=== PATIENT | female | born 1955 | race Two or more races ===

== ENCOUNTER 2022-06-24 08:38 | Emergency (ER) | payer OTHER ==
[~2022-06-24] VITALS: Ht 157.5 cm; Wt 67.6 kg
[2022-06-24] MEDS ORDERED: LOSARTAN POTAS100 MG PO (08:53)
[2022-06-24] MEDS ORDERED: HYDROCHLOROTH12.5 MG PO (08:54)
[2022-06-24] MEDS ORDERED: CARVEDILOL6.25 M1 PO (08:54)
[2022-06-24] MEDS ORDERED: LEVOTHYROXINE150 MCG PO (08:54)
[2022-06-24] MEDS ORDERED: ROSUVASTATIN CA10 MG PO (08:54)
[2022-06-24] MEDS ORDERED: ZOFRAN8 MG PO (17:45)
[2022-06-24] MEDS ORDERED: PEPCID AC20 MG PO (17:45)
== END 2022-06-24 17:53 | disposition home or self-care (01) ==
LOC: ER 08:38
DX: K63.5 Polyp of colon (principal); K62.5 Hemorrhage of anus and rectum; Z20.828 Contact with and (suspected) exposure to other viral communicable diseases

== ENCOUNTER 2022-06-30 09:47 | Inpatient (IN) | payer OTHER ==
[~2022-06-30] VITALS: Ht 157.5 cm; Wt 0.5 kg
[~2022-06-30 09:47] MED LIST: CARVEDILOL6.25 M1 PO; HYDROCHLOROTH12.5 MG PO; LEVOTHYROXINE150 MCG PO; LOSARTAN POTAS100 MG PO; PEPCID AC20 MG PO; ROSUVASTATIN CA10 MG PO; ZOFRAN8 MG PO
--- NOTE | 2022-06-30 10:26 | NUR ---
PTE REFIERE QUE TIENE SANGRADO ANAL PTE VIENE VON REFERIDO DEL DR OLMEDO
--- NOTE | 2022-06-30 11:29 | NUR ---
SE RECIBE FEMINA ALERTA Y ORIENTDA POR FRANCO ESFERAS, EN CLEMENTINA CON BARANDAS SEGURAS Y ELEVADAS. SE BALTA MUESTRAS DE LABORATORIO ORDENADAS. SE CANALIZA CON AREA DE VENOPUNCION MARIAMA DE EDEMA O ENROJECIMIENTO. SE ENTREGA ENVASE PARA MUESTRA DE ORINA Y CONTRASTES PARA CT SCAN.
[2022-07-02] MEDS ORDERED: DICY20TA PO (11:01)
[2022-07-02] MEDS ORDERED: LEVOFLOXACIN500 MG PO (11:02)
[2022-07-02] MEDS ORDERED: METRONIDAZOLE500 MG PO (11:02)
[2022-07-02] MEDS ORDERED: PEPCID AC20 MG PO (11:03)
== END 2022-07-02 12:25 | disposition home or self-care (01) | DRG 999 ==
LOC: ER 09:47 → SURH 11:34 → SEC-K 11:34 → SURH 11:47
PROVIDERS: ADMIT Surgery; ATTEND Surgery
PROC: 0DBN8ZX Excision of Sigmoid Colon, Via Natural or Artificial Opening Endoscopic, Diagnostic (ICD-10-PCS; principal; 2022-06-30)
PROC: BW21ZZZ Computerized Tomography (CT Scan) of Abdomen and Pelvis (ICD-10-PCS; 2022-06-30)
DX: D12.5 Benign neoplasm of sigmoid colon (principal); D17.5 Benign lipomatous neoplasm of intra-abdominal organs; Z20.822 Contact with and (suspected) exposure to COVID-19

== ENCOUNTER 2022-09-01 16:25 | Emergency (ER) | payer OTHER ==
[~2022-09-01] VITALS: Ht 162.6 cm; Wt 64.0 kg
[~2022-09-01 16:25] MED LIST changes: +DICY20TA PO; +LEVOFLOXACIN500 MG PO; +METRONIDAZOLE500 MG PO
== END 2022-09-01 21:08 | disposition home or self-care (01) ==
LOC: ER 16:25
DX: K52.9 Noninfective gastroenteritis and colitis, unspecified (principal); I10 Essential (primary) hypertension; Z20.822 Contact with and (suspected) exposure to COVID-19; N20.0 Calculus of kidney; M48.54XA Collapsed vertebra, not elsewhere classified, thoracic region, initial encounter for fracture